=== PATIENT | female | born 1990 | race American Indian/Alaskan Native ===

== ENCOUNTER 2020-06-13 15:26 | Emergency (ER) | payer MEDICAID ==
[2020-06-13 17:06] LABS: Bilirubin,Urine NEG (Negative); Blood,Urine LG (Negative); Color,Urine Straw (Yellow); Protein,Urine <15 mg/dL mg/dL (Negative); Urobilinogen,Urine < 2.0 mg/dL (<2.0)
--- NOTE | 2020-06-13 17:18 | Ultrasound Report ---
OB Ultrasound HISTORY: vaginal bleeding and pelvic pain. TECHNIQUE: Grayscale and color imaging performed. COMPARISON: None FINDINGS: Transabdominal and endovaginal imaging was performed. Uterus measures 9.6 x 4.5 x 5.3 cm with endometrial echocomplex measuring 1.1 cm. No intrauterine ges tational sac is identified. There is a rounded complex cystic-appearing structure in the left adnexal region with mean diameter o f 9 mm. If this were a gestational sac, gestational age would be 5 weeks and 5 days. No pole or cardiac activity identified. Both ovaries appear normal. No appreciable pelvic free fluid. IMPRESSION: Findings worrisome for a left adnexal ectopic . CRITICAL RESULT: Time of Discovery (AUTOMOBILE INSPECTOR/CDT): 4:10 PM Time of Communication (AUTOMOBILE INSPECTOR/CDT): 4:12 PM Licensed Practitioner Receiving Report: Dr. Serrano Read-Back Performed: Not applicable. Signer Name: Carlin Neely MD Signed: 06/13/2020 5:13 PM Workstation Name: [id number]
--- NOTE | 2020-06-13 17:18 | Ultrasound Report ---
OB Ultrasound HISTORY: vaginal bleeding and pelvic pain. TECHNIQUE: Grayscale and color imaging performed. COMPARISON: None FINDINGS: Transabdominal and endovaginal imaging was performed. Uterus measures 9.6 x 4.5 x 5.3 cm with endometrial echocomplex measuring 1.1 cm. No intrauterine ges tational sac is identified. There is a rounded complex cystic-appearing structure in the left adnexal region with mean diameter o f 9 mm. If this were a gestational sac, gestational age would be 5 weeks and 5 days. No pole or cardiac activity identified. Both ovaries appear normal. No appreciable pelvic free fluid. IMPRESSION: Findings worrisome for a left adnexal ectopic . CRITICAL RESULT: Time of Discovery (LIME KILN WORKER HELPER/CDT): 4:10 PM Time of Communication (LIME KILN WORKER HELPER/CDT): 4:12 PM Licensed Practitioner Receiving Report: Dr. Serrano Read-Back Performed: Not applicable. Signer Name: Carlin Neely MD Signed: 06/13/2020 5:13 PM Workstation Name: [id number]
[2020-06-13 17:27] LABS: Basophils % (Auto) 0.7 % (0.0-1.8); Eosinophils # (Auto) 0.1 K/mm3 (0.0-0.4); Eosinophils % (Auto) 2.1 % (0.0-4.3); Hematocrit 36.1 % (30.3-42.9); Hemoglobin 12.1 gm/dl (10.1-14.3); Lymphocytes # (Auto) 1.6 K/mm3 (1.2-5.4); Lymphocytes % (Auto) 23.9 % (13.4-35.0); Mean Corpuscular HGB Conc 34 % (30-34); Mean Corpuscular Volume 88 fl (79-97); Monocytes # (Auto) 0.3 K/mm3 (0.0-0.8); Monocytes % (Auto) 4.6 % (0.0-7.3); Platelet Count 242 K/mm3 (140-440); Red Blood Count 4.12 M/mm3 (3.65-5.03); Red Cell Distribution Width 14.3 % (13.2-15.2)
--- NOTE | 2020-06-13 17:32 | Emergency Department Report ---
ED HPI - General Chief complaint: Vaginal Bleeding Stated complaint: 7WKS BLEEDING /PAIN Time Seen by Provider: 06/13/20 15:38 Source: patient Mode of arrival: Ambulatory Limitations: No Limitations - History of Present Illness Initial comments: This is a 34-year-old female nontoxic, well nourished in appearance, no acute signs of distress presents to the ED with c/o of vaginal bleeding and pelvic pain x1 day. Patient stated has clots and mostly left pelvic pains. Patient denies any vaginal discharge or foul odor. Patient denies any nausea, vomiting, chest pain, shortness of breathe, fever, chills, headache, stiff neck, numbness, tingling. Patient denies any urinary symptoms. Patient denies any allergies or PMH. MD Complaint: vaginal bleeding, other (pelvic pain) -: days(s) Location: pelvis (left) Radiation: none Severity: mild Severity scale (0 -10): 8 Quality: cramping, aching Consistency: constant Improves with: none Worsens with: none Associated symptoms: vaginal bleeding. denies: nausea/vomiting, vaginal discharge, abdominal pain, dysuria, headache, vision changes, malaise, dysparuenia, rash, seizure, shortness of breath, syncope, weakness Vaginal bleeding: heavy, clots :: Yes Number of weeks : 7 - Related Data Allergies Allergy/AdvReac Type Severity Reaction Status Date / Time No Known Allergies Allergy Verified 06/13/20 15:38 ED Review of Systems ROS: Stated complaint: 7WKS BLEEDING /PAIN Other details as noted in HPI Comment: All other systems reviewed and negative Constitutional: denies: chills, fever Eyes: denies: eye pain, eye discharge, vision change ENT: denies: ear pain, throat pain Respiratory: denies: cough, shortness of breath, wheezing Cardiovascular: denies: chest pain, palpitations Endocrine: no symptoms reported Gastrointestinal: denies: abdominal pain, nausea, diarrhea Genitourinary: abnormal menses. denies: urgency, dysuria, discharge Musculoskeletal: denies: back pain, joint swelling, arthralgia Skin: denies: rash, lesions Neurological: denies: headache, weakness, paresthesias Psychiatric: denies: anxiety, depression Hematological/Lymphatic: denies: easy bleeding, easy bruising ED Past Medical Hx - Past Medical History Previous Medical History?: No - Surgical History Past Surgical History?: No - Social History Smoking Status: Never Smoker Substance Use Type: None ED Physical Exam - General Limitations: No Limitations General appearance: alert, in no apparent distress - Head Head exam: Present: atraumatic, normocephalic - Eye Eye exam: Present: normal appearance - Neck Neck exam: Present: normal inspection, full ROM - Respiratory Respiratory exam: Present: normal lung sounds bilaterally. Absent: respiratory distress, wheezes, rales, rhonchi, stridor, chest wall tenderness, accessory muscle use, decreased breath sounds, prolonged expiratory - Cardiovascular Cardiovascular Exam: Present: regular rate, normal rhythm, normal heart sounds. Absent: bradycardia, tachycardia, irregular rhythm, systolic murmur, diastolic murmur, rubs, gallop - GI/Abdominal GI/Abdominal exam: Present: soft, tenderness (left pelvic), normal bowel sounds. Absent: distended, guarding, rebound, rigid, diminished bowel sounds - Extremities Exam Extremities exam: Present: full ROM - Back Exam Back exam: Present: full ROM - Neurological Exam Neurological exam: Present: alert, oriented X3, normal gait - Psychiatric Psychiatric exam: Present: normal affect, normal mood - Skin Skin exam: Present: warm, dry, intact, normal color. Absent: rash ED Course Vital Signs 06/13/20 06/13/20 06/13/20 15:52 18:15 18:31 Temperature 100 F H Pulse Rate 85 80 77 Respiratory 16 9 L 14 Rate Blood Pressure 116/65 120/69 120/69 O2 Sat by Pulse 100 100 100 Oximetry 06/13/20 18:45 Temperature Pulse Rate 70 Respiratory 13 Rate Blood Pressure 103/65 O2 Sat by Pulse 100 Oximetry - Reevaluation(s) Reevaluation #1: 06/13/20 17:32 Patient is speaking in full sentences with no signs of distress noted. - Consultations Consultation #1: 06/13/20 17:32 Patient has been consulted with Dr. Ward (OBGYN) about patient history, physical exam, and labs/US report and will come see patient in the ED. 06/13/20 19:[address] Ward, patient will receive methotrexate and follow-up outpatient. Consultation #2: 06/13/20 19:32 Patient has been consulted with Florence Rodriguez about patient history, physical exam, and labs/US report and agrees to ED plan of care and discharge plan of care. ED Medical Decision Making - Lab Data Result diagrams: 06/13/20 16:54 Lab Results 06/13/20 06/13/20 06/13/20 Range/Units 16:54 16:54 16:54 WBC 6.9 (4.5-11.0) K/mm3 RBC 4.12 (3.65-5.03) M/mm3 Hgb 12.1 (10.1-14.3) gm/dl Hct 36.1 (30.3-42.9) % MCV 88 (79-97) fl MCH 29 (28-32) pg MCHC 34 (30-34) % RDW 14.3 (13.2-15.2) % Plt Count 242 (140-440) K/mm3 Lymph % (Auto) 23.9 (13.4-35.0) % [place] % (Auto) 4.6 (0.0-7.3) % Eos % (Auto) 2.1 (0.0-4.3) % Baso % (Auto) 0.7 (0.0-1.8) % Lymph # (Auto) 1.6 (1.2-5.4) K/mm3 [place] # (Auto) 0.3 (0.0-0.8) K/mm3 Eos # (Auto) 0.1 (0.0-0.4) K/mm3 Baso # (Auto) 0.0 (0.0-0.1) K/mm3 Seg Neutrophils % 68.7 (40.0-70.0) % Seg Neutrophils # 4.7 (1.8-7.7) K/mm3 HCG, Quant 4619 H (0-4) mIU/mL Urine Color (Yellow) Urine Turbidity (Clear) Urine pH (5.0-7.0) Ur Specific Villalba (1.003-1.030) Urine Protein (Negative) mg/dL Urine Glucose (UA) (Negative) mg/dL Urine Ketones (Negative) mg/dL Urine Blood (Negative) Urine Nitrite (Negative) Urine Bilirubin (Negative) Urine Urobilinogen (<2.0) mg/dL Ur Leukocyte Esterase (Negative) Urine WBC (Auto) (0.0-6.0) /HPF Urine RBC (Auto) (0.0-6.0) /HPF U Epithel Cells (Auto) (0-13.0) /HPF Blood Type A POSITIVE 06/13/20 Range/Units Unknown WBC (4.5-11.0) K/mm3 RBC (3.65-5.03) M/mm3 Hgb (10.1-14.3) gm/dl Hct (30.3-42.9) % MCV (79-97) fl MCH (28-32) pg MCHC (30-34) % RDW (13.2-15.2) % Plt Count (140-440) K/mm3 Lymph % (Auto) (13.4-35.0) % [place] % (Auto) (0.0-7.3) % Eos % (Auto) (0.0-4.3) % Baso % (Auto) (0.0-1.8) % Lymph # (Auto) (1.2-5.4) K/mm3 [place] # (Auto) (0.0-0.8) K/mm3 Eos # (Auto) (0.0-0.4) K/mm3 Baso # (Auto) (0.0-0.1) K/mm3 Seg Neutrophils % (40.0-70.0) % Seg Neutrophils # (1.8-7.7) K/mm3 HCG, Quant (0-4) mIU/mL Urine Color Straw (Yellow) Urine Turbidity Clear (Clear) Urine pH 7.0 (5.0-7.0) Ur Specific Villalba 1.004 (1.003-1.030) Urine Protein <15 mg/dl (Negative) mg/dL Urine Glucose (UA) Neg (Negative) mg/dL Urine Ketones Neg (Negative) mg/dL Urine Blood Lg (Negative) Urine Nitrite Neg (Negative) Urine Bilirubin Neg (Negative) Urine Urobilinogen < 2.0 (<2.0) mg/dL Ur Leukocyte Esterase Neg (Negative) Urine WBC (Auto) 4.0 (0.0-6.0) /HPF Urine RBC (Auto) 125.0 (0.0-6.0) /HPF U Epithel Cells (Auto) < 1.0 (0-13.0) /HPF Blood Type - Radiology Data [facility] [address] [place] [address] Ultrasound Report Signed Patient: ALEXIS SANDERSON MR#: [id number] : 1990 Acct:[id number] Age/Sex: 29 / F ADM Date: 06/13/20 Loc: ED Attending Dr: Ordering Physician: ELEAZAR FORTUNE NP Date of Service: 06/13/20 Procedure(s): US OB transvaginal Accession Number(s): [id number] cc: ELEAZAR BENITES NP OB Ultrasound HISTORY: vaginal bleeding and pelvic pain. TECHNIQUE: Grayscale and color imaging performed. COMPARISON: None FINDINGS: Transabdominal and endovaginal imaging was performed. Uterus measures 9.6 x 4.5 x 5.3 cm with endometrial echocomplex measuring 1.1 cm. No intrauterine gestational sac is identified. There is a rounded complex cystic-appearing structure in the left adnexal region with mean diameter of 9 mm. If this were a gestational sac, gestational age would be 5 weeks and 5 days. No pole or cardiac activity identified. Both ovaries appear normal. No appreciable pelvic free fluid. IMPRESSION: Findings worrisome for a left adnexal ectopic . CRITICAL RESULT: Time of Discovery (CAB STATION ATTENDANT/CDT): 4:10 PM Time of Communication (CAB STATION ATTENDANT/CDT): 4:12 PM Licensed Practitioner Receiving Report: Dr. Serrano Read-Back Performed: Not applicable. Signer Name: Charlee Neely MD Signed: 06/13/2020 5:13 PM Workstation Name: [id number] Transcribed By: AKASH Dictated By: Charlee Neely MD Electronically Authenticated By: Charlee Neely MD Signed Date/Time: 06/13/201712 DD/ 08 TD/TT: - Medical Decision Making 29-year-old female that presents with left ectopic . Patient is stable and was examined by me. Patient is notified of the results with no questions noted by the patient. Patient consulted with Dr. aWrd ([facility]) which came and saw the patient. Patient received methotrexate as prescribed from Dr. Wrad. Patient was given discharge instructions by Dr. Ward. Please see [facility] consult note. At time of discharge, the patient does not seem toxic or ill in appearance. No acute signs of distress noted. Patient agrees to discharge treatment plan of care. No further questions noted by the patient. Critical care attestation.: If time is entered above; I have spent that time in minutes in the direct care of this critically ill patient, excluding procedure time. ED Disposition Clinical Impression: Ectopic Qualifiers: Location of ectopic : tubal Intrauterine status: unspecified Laterality: left Qualified Code(s): O00.102 - Left tubal without intrauterine Disposition: TO HOME OR SELFCARE Is pt being admited?: No Does the pt Need Aspirin: No Condition: Stable Instructions: Methotrexate Treatment for an Ectopic , Care After, Ectopic Additional Instructions: As instructed to you by Dr. Ward, Follow-up with [facility] or other [facility] office for Day 4 follow up, but given Day 7 is SundayJune 20, you could also come to the Emergency Room for HCG checks , including [facility]. If symptoms worsen, new symptoms, and/or continue return to emergency room as soon as possible. Referrals: PRIMARY CARE, [Primary Care Provider] - 3-5 Days CHARLEE WARD JR, MD [Staff Physician] - [facility] [Provider Group] [facility] [facility], [facility] [Provider Group] Forms: Methotrexate D/C Instructions Time of Disposition: 19:35
[2020-06-13] MEDS ORDERED: MORPHINE 4 MG/1 ML INJ IV ONE (18:34)
--- NOTE | 2020-06-13 19:04 | History and Physical Report ---
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 History: trichomonas (as teenager) Family/Genetic History: hypertension Social history: smoking (MJ use) - Obstetrical History : 6 Para: 4 Hx # Term Pregnancies: 4 Induced : 1 Number of Living Children: 3 Medications and Allergies Allergies Allergy/AdvReac Type Severity Reaction Status Date / Time No Known Allergies Allergy Verified 06/13/20 15:38 Review of Systems All systems: negative (expect HPI) - Vital Signs Vital signs: Vital Signs Temp Pulse Resp BP Pulse Ox 100 F H 85 16 116/65 100 06/13/20 15:52 06/13/20 15:52 06/13/20 15:52 06/13/20 15:52 06/13/20 15:52 Temp Pulse Resp BP Pulse Ox 100 F H 70 13 103/65 100 06/13/20 15:52 06/13/20 18:45 06/13/20 18:45 06/13/20 18:45 06/13/20 18:45 - Physical Exam Cardiovascular: Regular rate Lungs: Positive: Clear to auscultation, Normal air movement Abdomen: Positive: normal appearance, other (deferred 2/2 concern for ectopic ) Results Result Diagrams: 06/13/20 16:54 Abnormal lab results 06/13/20 Range/Units 16:54 HCG, Quant 4619 H (0-4) mIU/mL All other labs normal. Ultrasound: report reviewed (9 mm left adnexal mass with gestational sac, no IUP or FP visualized) Assessment and Plan - Patient Problems (1) Ectopic Current Visit: Yes Status: Acute Qualifiers: Location of ectopic : tubal Intrauterine status: unspecified Laterality: left Qualified Code(s): O00.102 - Left tubal without intrauterine Plan to address problem: Given concern for left ectopic , discussed medical vs surgical options for management. After discussion, patient wishes to proceed with medical management with Methotrexate. --Methotrexate 50mg/kg IM --Needs to follow up Day 4 and Day 7 for HCG follow up. Proper decrease in HCG in 15% between Day 4 and Day 7, otherwise redosing vs surgical management could be indicated. Patient can presenting at [facility] or other [facility] office for Day 4 follow up, but given Day 7 is SundayJune 20, patient could also presenting for all HCG checks in the ED, [facility]. Patient understands the importance of follow up. --Consented in the chart --Questions solicited and answered
[2020-06-13 21:16] VITALS: BP 101/58
[2020-06-13] MEDS ORDERED: ONDANSETRON 4 MG/2 ML INJ IM ONE (23:50)
[2020-06-13] MEDS ORDERED: MORPHINE 4 MG/1 ML INJ IM ONE (23:50)
[2020-06-13] MEDS ORDERED: ONDANSETRON 4 MG/2 ML INJ ONE (23:52)
[2020-06-13] MEDS ORDERED: MORPHINE 4 MG/1 ML INJ ONE (23:52)
== END 2020-06-14 00:20 | disposition home or self-care (01) ==
LOC: ED 15:26
DX: O00.102 Left tubal pregnancy without intrauterine pregnancy (principal); Z3A.01 Less than 8 weeks gestation of pregnancy
CPT/HCPCS: 36415; 76801; 76817; 81001; 84702; 85025; 86900; 86901; 96372; 96374; 99284; J2270; J2405; J9260